=== PATIENT | female | born 1940 | race Caucasian/White ===

== ENCOUNTER → 2016-08-23 | Outpatient (CLI) | payer MEDICARE, BC ==
[~2016-08-23] MED LIST: ACETAMINOPHEN; ACTONEL; ACTOS PO; ANTARA; BENICAR HCT 40-1 TA1; BETIMOL; BETIMOL5 ML OU; CALCIUM 500 + D1 TAB PO; CALCIUM CARBONA1 TAB PO; CO Q-10200 MG PO; DISCONTINUED MED; FENOFIBRATE134 MG PO; FERROUS SULFATE PO; FISH OIL 1,0001 CAP PO; FISH OIL500 MG PO; FLEXERIL; LEXAPRO; LODINE PO; LORTAB 10-5001 EACH; LORTAB 10-5001 EACH PO; LORTAB 7.5-5001 TAB PO; LOSARTAN-HCTZ1 EAC3 PO; METFORMIN HCL500 M1 PO; METFORMIN PO; MOBIC; MOBIC PO; MULTI-VITAMIN1 TAB; MULTIVITAMIN1 UDCAP PO; NAPROXEN PO; NEXIUM PO; PRED FORTE; PRED FORTE1 ML OP; PRED FORTE1 ML OU; PRED-G 1% EYE DR5 ML; PRILOSEC; RESTASIS32 EA OP; RESTASIS32 EA OU; TRICOR134 MG PO; TYLENOL EXTRA500 M1 PO; VIT C; VITAMIN D 4001 UDTAB PO; VITAMIN D400 UNI2 IU; ZETIA; ZOCOR; ZOCOR20 MG PO
--- NOTE | ~2016-08-23 | MY29 ---
[facility] A Service of [facility] / [facility] RADIOLOGY TEXT RESULTS PATIENT: RADHA COLLAZO LOCATION: [facility] : 38 UNIT #: [id number] AGE: [address]: Clementina Zamora MD SEX: F ORDER DR: [id number] [facility] [address] [place], [place] [address] [id number] O MR#: [id number] Acc #: [id number] NAME: RADHA COLLAZO : 1940 SEX: F STUDY DATE/TIME: 08/23/2016 11:52 UNIT: [facility] ROOM: STUDY DESCRIPTION: MY NORA SCREENING W/ CAD BILAT Attending Physician: Clementina Zamora M.D. Referring Physician: Clementina Zamora M.D. Ordering Physician: Clementina Zamora M.D. Primary Care Physician: Odalys Milner M.D. MEDICAL IMAGING REPORT This report is preliminary unless electronic signature is present EXAM Digital screening mammogram, 08/23/2016; [facility]. HISTORY 76-year-old woman, strong family history, sister age 50. Hormone replacement x3 years. Annual screen. COMPARISON Comparison mammograms date to 06/17/2005 with most recent 08/24/2015. FINDINGS Digital imaging of each breast was completed utilizing a two-view examination of each breast in craniocaudal and mediolateral-oblique projections. Review and interpretation of digital mammograms include a second review in conjunction with FDA-approved CAD device. There is a normal parenchymal presentation bilaterally consistent with the patient's age. There are no breast masses imaged and no parenchymal asymmetry is visualized. There are no suspicious microcalcifications and I see no focal architectural disturbance. IMPRESSION Negative screening digital mammogram. One-year followup recommended. Patients over the age of 40 are entered into a reminder system with target due date for the next mammogram. A result letter will also be sent to the patient. BIRADS: 1 Negative. ADDENDUM Breast parenchyma is fatty replaced. [facility] A Service of [facility] / [facility] RADIOLOGY TEXT RESULTS PATIENT: RADHA COLLAZO LOCATION: [facility] #: [id number] : 38 UNIT #: [id number] AGE: [address]: Clementina Zamora MD SEX: F ORDER DR: Dictated by... Laurent Farias M.D. THIS IS AN ELECTRONICALLY VERIFIED REPORT Laurent Farias M.D. at 08/30/2016 7:12 AM DARRELL/cassie TD: 08/23/2016 16:05 JOB #: [id number] MEDICAL IMAGING REPORT Page 1 of 1 COPY
== END | disposition home or self-care (01) ==
LOC: CWCC 11:33
DX: Z12.31 Encounter for screening mammogram for malignant neoplasm of breast (principal); Z80.3 Family history of malignant neoplasm of breast; Z79.890 Hormone replacement therapy; R92.8 Other abnormal and inconclusive findings on diagnostic imaging of breast
CPT/HCPCS: G0202